=== PATIENT | female | born 1970 | race Caucasian/White ===

== ENCOUNTER → 2017-09-02 | Outpatient (CLI) | payer OTHER ==
[~2017-09-02] MED LIST: ABILIFY30 MG PO; AMBIEN CR12.5 MG PO; CLONIDINE HCL0.2 MG PO; MUCINEX FAST-M1 EAC2 PO; TRAMADOL HCL50 MG PO
== END | disposition home or self-care (01) ==
LOC: NUC 08:55
DX: R25.1 Tremor, unspecified (principal)
CPT/HCPCS: 78607; A9540; A9567